=== PATIENT | female | born 1960 | race Caucasian/White ===

== ENCOUNTER → 2021-06-01 | Outpatient (CLI) | payer MEDICARE, OTHER ==
--- NOTE | 2021-06-04 12:44 | CT ---
EXAMINATION TYPE: CT urogram wo/w con DATE OF EXAM: 06/01/2021 COMPARISON: None HISTORY: 61 year-old female R31.0 GROSS HEMATURIA TECHNIQUE: Contiguous axial scanning of the abdomen and pelvis performed without and with IV Contrast , patient injected with 90 mL of Isovue 300. Delayed images through the kidneys and bladder were obta ined. Coronal/sagittal reconstructions performed. 3-D reconstructions generated on a dedicated [employer] workstation. CT DLP: 1782 mGycm Automated exposure control for dose reduction was used. FINDINGS: Heart normal size without pericardial effusion. Lung bases clear without pleural effusion. Liver measures larger at 20.2 cm likely due to the presence of a Erin's lobe. No focal lesion is se en. No biliary ductal dilatation. Portal venous system is patent. Gallbladder, adrenal glands, spleen, and pancreas within normal limits. Retroaortic left renal vein. Moderate atherosclerotic calcifications abdominal aorta and more severe in the common iliac arteries with bilateral common iliac artery stents demonstrated. Prominent fluid-filled small bowel loops throughout the abdomen. Some small bowel loops are borderlin e distended up to 2.7 cm. No transition point to suggest an obstruction. There is mild wall thickening along the ascending colon and hepatic flexure. Moderate stool in the le ft side of the colon. Left-sided colonic diverticulosis. No pericolonic inflammatory changes. There is an enlarged portacaval lymph node measuring up to 2.0 cm short axis, coronal image 70. This is probably reactive/post inflammatory. No other mesenteric or retroperitoneal lymphadenopathy. Evaluation the kidneys shows slightly malrotated right kidney. No renal calculi or hydronephrosis. No suspicious calcifications seen along the course of either ureter. No renal mass or collecting system filling defect is identified the ureters appear unremarkable. Blad lane urine distended. There is some prominent fluid seen along the vaginal canal. This appears to be replaced by some more hyperdense material on the delayed scan. Pelvic phleboliths. Uterus anteverted. Both ovaries are visu alized. No abnormal fluid collection otherwise seen in the pelvis. Bones: Hypertrophic facet arthropathy lower lumbar spine with grade 1 anterolisthesis L4-L5. Osteopen ia. IMPRESSION: 1. 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 NO NEPHROLITHIASIS OR HYDRONEPHROSIS. NO S USPICIOUS RENAL LESION OR COLLECTING SYSTEM FILLING DEFECT. 2. THE VAGINAL CANAL APPEARS TO DISTEND WITH FLUID WHICH LATER BECOMES HYPERDENSE ON THE DELAYED SCAN . SOME TYPE OF URINE CONTAMINATION IS SUGGESTED. CORRELATE TO EXCLUDE POSSIBILITIES SUCH A URETHRA L TO VAGINAL FISTULA. ALSO, PELVIC ULTRASOUND CAN ENSURE A NORMAL ENDOMETRIAL STRIPE THICKNESS. 3. PROMINENT FLUID-FILLED SMALL BOWEL LOOPS THROUGHOUT THE ABDOMEN AND SOME CIRCUMFERENTIAL WALL THIC KENING ON THE RIGHT SIDE OF THE COLON. CORRELATE FOR ENTEROCOLITIS. 4. LEFT SIDED COLONIC DIVERTICULOSIS WITHOUT EVIDENCE FOR ACUTE DIVERTICULITIS.
== END | disposition home or self-care (01) ==
LOC: RADCTMAIN 17:32
PROVIDERS: ATTEND Urology
DX: N28.89 Other specified disorders of kidney and ureter (principal); K63.89 Other specified diseases of intestine; K57.30 Diverticulosis of large intestine without perforation or abscess without bleeding
CPT/HCPCS: 74178; 74400; Q9967

== ENCOUNTER → 2021-07-02 | Outpatient (CLI) | payer MEDICARE, OTHER ==
--- NOTE | 2021-07-02 14:00 | CT ---
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 Post void scan was also performed. Coronal and sagittal reconstructions were generated. CT DLP: 1009 mGycm Automated exposure control for dose reduction was used. FINDINGS: Initial noncontrast images show a collapsed bladder containing Silva catheter. Uterus is anteverted. Ovaries not clearly delineated from adjacent bowel loops. A few small pelvic phleboliths. There is no fluid distention of the vagina. After contrast instillation, small amount of nondependent air is noted along the anterior wall. No ex travasation or extraluminal extension of contrast is seen. After voiding, trace residual contrast material remains in the bladder lumen. Small focus of nondepen dent intraluminal bladder air anteriorly. Some prominent fluid-filled small bowel loops throughout the lower abdomen and pelvis. Sigmoid divert iculosis without pericolonic inflammatory change. Scattered prominent mesenteric lymph nodes measuring up to 6 mm probably reactive. Stents within the bilateral proximal common iliac arteries. Bones: No osseous destructive process. Moderate degenerative change of the hips. IMPRESSION: 1. CT CYSTOGRAM SHOWS NO EXTRALUMINAL EXTENSION OF CONTRAST TO SUGGEST FISTULA OR LEAK. THE PREVIOUSL Y SEEN FLUID DISTENTION OF THE VAGINA IS NO LONGER APPRECIATED. SMALL AMOUNT OF NONDEPENDENT INTRALUM INAL BLADDER AIR LIKELY RELATES TO THE INSTRUMENTATION. CLINICALLY CORRELATE. 2. SIGMOID DIVERTICULOSIS WITHOUT ACUTE DIVERTICULITIS.
== END | disposition home or self-care (01) ==
LOC: RADCTMAIN 11:14
PROVIDERS: ATTEND Urology
DX: R31.9 Hematuria, unspecified (principal); K57.30 Diverticulosis of large intestine without perforation or abscess without bleeding
CPT/HCPCS: 72192

== ENCOUNTER → 2022-06-26 | Outpatient (CLI) | payer MEDICARE, OTHER ==
--- NOTE | 2022-06-26 15:22 | P.SLEEP ---
History of Present Illness DATE: 06/26/2022 CONSULTATION/NEW PATIENT EVALUATION HISTORY OF PRESENT ILLNESS/SLEEP-WAKE EVALUATION: 62-year-old lady had been evaluated in the sleep center for possible obstructive sleep apnea hypopnea syndrome. SLEEP SCHEDULE: Usually sleep schedule from 8.30-10 PM until 5 AM 7 days a week. FALLING ASLEEP: Usually no problems with falling asleep, although patient has TV set and bedroom. DURING SLEEP: Patient usually sleeps on the side position. According to her she snores. Patient wakes up from sleep 3 times with nocturia No history of hypnogogical hallucinations, sleep paralysis, or cataplexy. DURING THE DAY/WAKE STATE: In the morning patient wake up tired, has problems with concentration. [place] sleepiness scale is 4, which is in normal range. Usually patient doesn't take naps. Patient takes to coffee during the afternoon time. PAST MEDICAL HISTORY: Hypertension, hyperlipidemia, history of intermittent claudication PAST SURGICAL HISTORY: Stent insertion to femoral arteries bilaterally, tonsillectomy, appendectomy. MEDICATIONS: Clopidogrel, losartan 25 mg once a day, rosuvastatin, prolivia. SOCIAL HISTORY: Positive for smoking for 30 years presently around half pack a day. [], alcohol consumption occasional. FAMILY HISTORY: Hypertension, heart problems, snoring, diabetes mellitus, during the sleep. REVIEW OF SYSTEMS: Snoring, multiple awakenings from sleep. No fevers. No double vision. No recent chest pain. No shortness of breath. No abdominal pain. No bleeding episodes. No blood in urine. No seizure episodes. PHYSICAL EXAMINATION: GENERAL: A pleasant patient without any distress. VITAL SIGNS: BP 135/71 , HR 68 , RR 18 , weight 151.0 pounds, height 5 foot 1-1/2 inches, body mass index 28.0 . HEENT: PERRLA, EOMI. Evaluation of oropharynx showed tongue protrudes midline, low position of soft palate Mallampati 3. NECK: Supple. No JVD. Thyroid is not palpable. 14-1/3 inches in circumference. LUNGS: Clear to percussion and to auscultation. Good air exchange. No wheezing or rhonchi. HEART: S1, S2 regular. No murmurs, gallops or rubs. ABDOMEN: Soft and nontender. Bowel sounds are present. No organomegaly appreciated. EXTREMITIES: No clubbing or cyanosis. TECHNICAL LABORATORY ASST: Awake, alert, and oriented x3. Cranial nerves 2 to 7 intact. There is no f asciculation or atrophy noted. No focal deficits observed. ASSESSMENT: 1. Snoring, multiple awakenings from sleep, low position of soft palate Mallampati 3, headaches. Obstructive sleep apnea hypopnea syndrome. 2. Hypertension. 3. History of intermittent claudication. Status post stent insertions bilaterally to femoral arteries. 4. Hyperlipidemia. 5 smokier for more than 30 years. 6 . Status post tonsillectomy. 7. Status post appendectomy. PLAN: 1. Polysomnography for evaluation of patient's breathing during sleep. 2. CPAP/BiPAP titration if sleep study confirms obstructive sleep apnea- hypopnea syndrome. 3. Preferable position during sleep on the side. 4. No driving if patient feels any sleepiness. Patient is aware of civil and criminal liability for unsafe driving. 5. Sleep hygiene with regular sleep time for at least 7.5-8 hours. 6. Watching weight. 7. Smoking cessation program Thank you very much for referring this patient for consultation. Sincerely, Dhruv Guo MD, PhD, FAASM. Diplomat of [place] [employer], Sleep Medicine Board by [place] [employer] [place] [employer] [facility] - Sleep Note Sleep Note: Temperature: Pulse Rate: Respiratory Rate: Blood Pressure: SpO2: Height: Weight: BMI: Neck Circumference:
== END ==
LOC: SLEEP 14:31
PROVIDERS: ATTEND Internal Medicine
DX: G47.33 Obstructive sleep apnea (adult) (pediatric) (principal); I10 Essential (primary) hypertension; E78.5 Hyperlipidemia, unspecified; Z95.5 Presence of coronary angioplasty implant and graft; Z90.89 Acquired absence of other organs; Z87.891 Personal history of nicotine dependence; Z79.899 Other long term (current) drug therapy
CPT/HCPCS: 99211